=== PATIENT | female | born 1980 | race Caucasian/White ===

== ENCOUNTER 2021-05-31 14:08 | Emergency (ER) | payer OTHER ==
[~2021-05-31] VITALS: Ht 167.6 cm; Wt 83.9 kg
[~2021-05-31 14:08] MED LIST: NORCO 5-325 TA1 EACH PO; PHENERGAN 25 MG25 M1 PO; PREVACID15 MG PO
[2021-05-31] MEDS ORDERED: NEXIUM40 MG PO (14:20)
[2021-05-31 16:31] LABS: ABSOLUTE BASOPHILS 0.1 thou/uL (0.0-0.2); ABSOLUTE EOSINOPHILS 0.1 thou/uL (0.0-0.7); ABSOLUTE LYMPHOCYTES 1.1 thou/uL (0.8-5.3); ABSOLUTE MONOCYTES 0.6 thou/uL (0.0-1.2); ABSOLUTE NEUTROPHILS 5.3 thou/uL (1.6-8.1); BASOPHILS 0.9 %; EOSINOPHILS 1.8 %; HEMATOCRIT 38.5 % (37.0-47.0); LYMPHOCYTES 15.6 %; MCH 30.5 pg (26.0-34.0); MCHC 33.8 g/dL (28.0-37.0); MCV 90.2 fL (80.0-100.0); MPV 7.9 fl. (7.2-11.1); NUCLEATED RBCS 0 /100WBC; PLATELET COUNT* 321 thou/uL (150-400); POLYS 73.7 %; RBC 4.26 mil/uL (4.20-5.00); RDW-CV 13.5 % (10.5-14.5); WBC 7.2 thou/uL (4.0-11.0)
[2021-05-31 16:40] LABS: ANION GAP < 0 mmol/L (7-16); BUN 13 mg/dL (7-18); CALCIUM 8.8 mg/dL (8.5-10.1); CHLORIDE 102 mmol/L (98-107); CO2 25 mmol/L (21-32); CREATININE 0.9 mg/dL (0.6-1.3); GLUCOSE 98 mg/dL (70-99); POTASSIUM 4.1 mmol/L (3.5-5.1); SODIUM 126 mmol/L (136-145)
[2021-05-31 16:50] LABS: ALBUMIN 3.9 g/dL (3.4-5.0); ALKALINE PHOSPHATASE 70 U/L (46-116); MAGNESIUM 1.9 mg/dL (1.8-2.4); NT-PRO BRAIN NAT PEPTIDE 44 pg/mL (<300); SGOT 14 U/L (15-37); SGPT 21 U/L (30-65); TOTAL BILIRUBIN 0.1 mg/dL (<0.1-1.0); TOTAL PROTEIN 7.3 g/dL (6.4-8.2)
[2021-05-31 19:34] LABS: CALCIUM 8.8 mg/dL (8.5-10.1); CREATININE 0.8 mg/dL (0.6-1.3); POTASSIUM 4.6 mmol/L (3.5-5.1)
[2021-05-31] MEDS ORDERED: CLONIDINE HCL0.1 MG PO (20:02)
[2021-05-31 20:29] VITALS: BP 120/75
--- NOTE | 2021-06-01 10:48 | EKG ---
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[place] : 1980 Requested By: Pato Garner Order Number: [id number] Reading MD: Boogie Kellogg Measurements Intervals [place] Rate: 89 P: 36 [place]: 150 QRS: -8 QRSD: 102 T: 7 QT: 377 QTc: 459 Interpretive Statements Sinus rhythm Low voltage, precordial leads Borderline repolarization abnormality No previous ECG available for comparison Electronically Signed On 06-01-2021 10:48:29 CDT by Boogie Kellogg [email or web address] <ELECTRONICALLY SIGNED> By: Boogie Kellogg MD, [facility] 06/01/21 1048 1414 1414 Boogie Kellogg MD, FAC /EPI
== END 2021-05-31 20:29 | disposition home or self-care (01) ==
LOC: M.ERS 14:08
PROVIDERS: Nurse Practitioner Family
DX: E87.1 Hypo-osmolality and hyponatremia (principal); R03.0 Elevated blood-pressure reading, without diagnosis of hypertension; R06.02 Shortness of breath; R07.89 Other chest pain; R42 Dizziness and giddiness; Z90.711 Acquired absence of uterus with remaining cervical stump; Z90.49 Acquired absence of other specified parts of digestive tract; Z79.899 Other long term (current) drug therapy